=== PATIENT | female | born 1970 ===

== ENCOUNTER 2020-07-21 12:38 | Day surgery (SDC) | payer BC ==
[~2020-07-21] VITALS: Ht 167.6 cm; Wt 69.4 kg
[~2020-07-21 12:38] MED LIST: AMPDEX10CR PO; Ativan1 MG PO; CLON.1 PO; MELATONIN5 M1 PO
[2020-07-21] MEDS ORDERED: LEVSOD25 PO (13:27)
[2020-07-21] MEDS ORDERED: TIZA4 PO (13:27)
--- NOTE | 2020-07-21 13:33 | NUR ---
07/21/20 1333 Mary Beckman V 20G IV PLACED IN R HAND PER ORDERS.
--- NOTE | 2020-07-21 15:16 | NUR ---
07/21/20 1516 Alexandrea Mojica MIDDLE FINGER TURNING PURPLE ON RIGHT HAND. STACI WRAP REMOVED AND LOOSENED AND REWRAPPED. DR. DEAL NOTIFIED. NO NEW ORDERS.
== END 2020-07-21 15:16 | disposition home or self-care (01) ==
LOC: ORSCSDS 12:38
PROVIDERS: Orthopaedic Surgery
PROC: 01N50ZZ Release Median Nerve, Open Approach (ICD-10-PCS; principal; 2020-07-21 14:00)
DX: G56.01 Carpal tunnel syndrome, right upper limb (principal); I10 Essential (primary) hypertension; E03.9 Hypothyroidism, unspecified; Z79.899 Other long term (current) drug therapy
CPT/HCPCS: J0690; J2250; J2405; J3010

== ENCOUNTER 2021-09-18 06:21 | Day surgery (SDC) | payer BC ==
[~2021-09-18] VITALS: Ht 167.6 cm; Wt 71.4 kg
[~2021-09-18 06:21] MED LIST changes: +LEVSOD25 PO; +TIZA4 PO
[2021-09-18] MEDS ORDERED: LISI20 PO (07:15)
--- NOTE | 2021-09-18 07:47 | NUR ---
09/18/21 0747 Best Jara BUPIVACAINE 0.5 % 50 MLS MIXED WITH EPI 0.25 MLS PER ORDER TO CONSTITUTE BUPIVACAINE 0.5% 1:200,O00 FOR INJECTION AT OPSITE BY DR MCGINNIS.
== END 2021-09-18 09:38 | disposition home or self-care (01) ==
LOC: ORSCSDS 06:21
DX: M20.11 Hallux valgus (acquired), right foot (principal); M20.41 Other hammer toe(s) (acquired), right foot; I10 Essential (primary) hypertension; E03.9 Hypothyroidism, unspecified; Z79.899 Other long term (current) drug therapy
CPT/HCPCS: A9270; C1713; C1776; J0171; J0690; J1100; J1885; J2250; J2405; J2704; J3010; J7120